=== PATIENT | male | born 1985 | race Caucasian/White ===

== ENCOUNTER 2017-06-09 12:41 | Emergency (ER) | payer OTHER ==
[~2017-06-09] VITALS: Ht 167.6 cm; Wt 83.0 kg
[2017-06-09 12:44] VITALS: Ht 167.6 cm; Wt 83.0 kg
[2017-06-09] MEDS ORDERED: CEPH-443 PO (13:22)
[2017-06-09] MEDS ORDERED: SULF1TAB31 PO (13:22)
--- NOTE | 2017-06-09 13:24 | ERD ---
ER Documentation Chief Complaint Chief Complaint PAIN AND REDNESS ON RT LEG HPI This 32-year-old male presents with some redness and pain on his right calf. He had a new tattoo in that area 1 week ago. He denies any swelling, shortness breath, fevers, vomiting. ROS All systems reviewed and are negative except as per history of present illness. Medications Home Meds Active Scripts Sulfamethoxazole/Trimethoprim* (Bactrim Ds* Tablet) 1 Each Tablet, 1 TAB PO BID for 7 Days, #14 TAB Prov:JEAN CELESTE MD 06/09/17 Cephalexin* (Keflex*) 500 Mg Capsule, 500 MG PO QID for 7 Days, CAP Prov:JEAN CELESTE MD 06/09/17 PMhx/Soc History of Surgery: Yes Hx Cardiac Disorders: Yes (cholesterol) Hx Alcohol Use: No Hx Substance Use: No Hx Tobacco Use: Yes Smoking Status: Current every day smoker Physical Exam Vitals Vital Signs Date Time Temp Pulse Resp B/P Pulse Ox O2 Delivery O2 Flow Rate FiO2 06/09/17 12:44 99.2 108 18 152/80 99 Physical Exam Const: [] Alert, not ill-appearing per Head: Atraumatic Eyes: Normal Conjunctiva ENT: Normal External Ears, Nose and Mouth. Neck: Full range of motion..~ No meningismus. Resp: Clear to auscultation bilaterally Cardio: Regular rate and rhythm, no murmurs Abd: Soft, non tender, non distended. Normal bowel sounds Skin: No petechiae or rashes there are some redness and warmth overlying the area of a new tattoo on his right posterior calf. There is no swelling or Homans sign. The right lower extremity is neurovascular intact. Back: No midline or flank tenderness Ext: No cyanosis, or edema Neur: Awake and alert Psych: Normal Mood and Affect Results 24 hrs Current Medications Medications (Trade) Dose Ordered Sig/Rosa M Route PRN Reason Start Time Stop Time Status Last Admin Dose Admin Cephalexin (Keflex) 500 mg ONCE ONCE PO 06/09/17 13:30 06/09/17 13:31 Trimethoprim/ Sulfamethoxazole (Bactrim (Ds)) 1 tab ONCE ONCE PO 06/09/17 13:30 06/09/17 13:31 Procedures/MDM Patient presents with signs of superficial infections on the posterior aspect of his right calf likely related to a new tattoo. Signs and symptoms do not suggest DVT, sepsis, abscess, necrotizing fasciitis.. There is no evidence of ischemia or deficits. He will be treated with Bactrim and Keflex, instructions for elevation and return precautions. He should return for fevers, vomiting, worsening redness, new worsening symptoms or primary care doctor this week. Departure Diagnosis: Primary Impression: Cellulitis Site of cellulitis: extremity Site of cellulitis of extremity: lower extremity Laterality: right Qualified Code: L03.115 - Cellulitis of right lower extremity Condition: Stable Patient Instructions: Cellulitis Additional Instructions: Recheck for worsening redness, fevers, new or worsening symptoms or primary care doctor. JEAN CELESTE MD Jun 09, 2017 13:24
[2017-06-09] MEDS ORDERED: TRIMETHOPRIM/SULFAMETHOX (DS) TAB PO ONE (13:30)
[2017-06-09] MEDS ORDERED: CEPHALEXIN 500 MG CAP PO ONE (13:30)
[2017-06-09 13:40] VITALS: BP 136/80; PULSE 90; RESP 18; TEMP 97.7
== END 2017-06-09 15:10 | disposition home or self-care (01) ==
LOC: FTE 12:41
DX: L03.115 Cellulitis of right lower limb (principal); F17.210 Nicotine dependence, cigarettes, uncomplicated
CPT/HCPCS: 99284